=== PATIENT | female | born 1960 | race Caucasian/White ===

== ENCOUNTER 2018-12-02 10:38 | Emergency (ER) | payer MEDICAID, OTHER ==
[~2018-12-02] VITALS: Ht 160 cm; Wt 72.6 kg
[~2018-12-02 10:38] MED LIST: ACHD5005 PO; ALPR.5T PO; CITA40TA19 PO; TRAM50TA2 PO
--- OUTSIDE RECORDS SUMMARY | 2018-12-02 10:45 | XMS REPORT ---
Author APRIL Gatica [facility] eClinicalWorks Address Unknown Phone Unavailable Care Team Providers Care Taxicab Driver Name Role Phone APRIL ESPINOZA CP Unavailable Allergies, Adverse Reactions, Alerts Substance Reaction Event Type N.K.D.A. 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 Active Problem Other and unspecified hyperlipidemia 272.4 Active Problem Unspecified arthropathy, site unspecified 716.90 Active Problem Unspecified vitamin D deficiency 268.9 Active Problem Pain in joint, lower leg 719.46 Active Problem Generalized hyperhidrosis 780.8 Active Problem Shortness of breath 786.05 Active Problem Abnormal weight gain 783.1 Active Problem Anxiety state, unspecified 300.00 Active Problem 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 Assessment Knee pain, bilateral 719.46 Active Problem Unspecified constipation 564.00 Active Problem Unspecified episodic mood disorder 296.90 Active Problem Major depressive disorder, recurrent episode, moderate 296.32 Active Problem Memory loss 780.93 Active Problem Pain in joint, site unspecified 719.40 Active Problem Chronic airway obstruction, not elsewhere classified 496 Active Medications Medication Code System Code Instructions Start Date End Date Status Dosage Celexa [facility] [address]-55 40 mg Oct 01, 2011 SIG: Albuterol Sulfate [facility] [address]-67 90 mcg/actuation Aug 05, 2014 2 puffs by Inhalation route every 4-6 hours as needed PRN cough or wheezing Diclofenac Sodium [facility] 21372535391 75MG TAKE ONE TABLET BY MOUTH TWICE DAILY NEEDED. tramadol ND 0 50 mg December 04, 2014 take 1 tablet (50 mg) by oral route every 6 hours as needed PRN pain Vitamin D [facility] [address]-19 2000 UNIT Orally not defined Alprazolam [facility] [address]-59 0.5 mg Oct 01, 2011 SIG: Other instruction 5 times a day Procedures Procedure Coding System Code Date Office Visit, Est Pt., Level 3 CPT-4 10356 May 21, 2015 Vital Signs Date/Time: May 21, 2015 Temperature 96.8 F Weight 161 lbs Height 63 in BMI 28.52 Index Blood Pressure Diastolic 90 mmHg Blood Pressure Systolic 160 mmHg Cardiac Monitoring Heart Rate 84 bpm Results No Known Results Summary Purpose eClinicalWorks Submission
--- OUTSIDE RECORDS SUMMARY | 2018-12-02 10:45 | XMS REPORT ---
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 Active Problem Generalized hyperhidrosis 780.8 Active Problem Pain in joint, shoulder region 719.41 Active Problem Unspecified vitamin D deficiency 268.9 Active Problem Other and unspecified hyperlipidemia 272.4 Active Problem Hyperlipidemia, mixed E78.2 Active Problem Abnormal weight gain 783.1 Active Problem Pain in joint, lower leg 719.46 Active Problem Unspecified arthropathy, site unspecified 716.90 Active Problem Shortness of breath 786.05 Active Problem 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 Problem Major depressive disorder, recurrent episode, moderate 296.32 Active Problem Anxiety state, unspecified 300.00 Active Problem Unspecified episodic mood disorder 296.90 Active Problem Memory loss 780.93 Active Problem Pain in joint, site unspecified 719.40 Active Problem Chronic airway obstruction, not elsewhere classified 496 Active Problem Unspecified constipation 564.00 Active Problem Other and unspecified derangement of medial meniscus 717.3 Active Medications Medication Code System Code Instructions Start Date End Date Status Dosage tramadol NDC 0 50 mg by oral route December 04, 2014 Aug 23, 2016 take 1 tablet (50 mg) by oral route every 6 hours as needed PRN pain Results No Known Results Summary Purpose eClinicalWorks Submission
--- OUTSIDE RECORDS SUMMARY | 2018-12-02 10:45 | XMS REPORT ---
Author Author APRIL ESPINOZA Organization [facility] Address [address] [place] [address] Care Team Providers Care Dry Cleaner Hand Name Role Phone APRIL ESPINZOA Unavailable PROBLEMS Type Condition ICD9-CM Code [id number] Code Onset Dates Condition Status SNOMED Code Problem Unspecified constipation 564.00 Active 52087443 Problem Anxiety state, unspecified 300.00 Active 504463413 Problem Chronic airway obstruction, not elsewhere classified 496 Active 35747510 Problem Hyperlipidemia, mixed E78.2 Active 048288946 Problem Major depressive disorder, recurrent episode, moderate 296.32 Active 07292083 Problem 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 90361201 Problem Unspecified episodic mood disorder 296.90 Active 332200483 Problem Unspecified vitamin D deficiency 268.9 Active 94254406 Problem Other and unspecified hyperlipidemia 272.4 Active 02394576 Problem Memory loss 780.93 Active 26707919 Problem Generalized hyperhidrosis 780.8 Active 729569001 Problem Shortness of breath 786.05 Active 595914117 Problem Abnormal weight gain 783.1 Active 039282445 Problem Pain in joint, shoulder region 719.41 Active 354221047 Problem Pain in joint, site unspecified 719.40 Active 08474381 Problem 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 Active 14699573 Problem Other and unspecified derangement of medial meniscus 717.3 Active 677086056 Problem Pain in joint, lower leg 719.46 Active 362589241 Problem Unspecified arthropathy, site unspecified 716.90 Active 907037290 ALLERGIES No Information SOCIAL HISTORY Never Assessed PLAN OF CARE VITAL SIGNS MEDICATIONS Medication Instructions Dosage Frequency Start Date End Date Duration Status Diclofenac Sodium 75MG 1 tablet 30 Active RESULTS No Results PROCEDURES No Known procedures IMMUNIZATIONS No Known Immunizations MEDICAL (GENERAL) HISTORY Type Description Date Medical History arthritis Medical History chronic knee pain Surgical History knee surgery(torn meniscus) Hospitalization History surgery Hospitalization History childbirth
--- OUTSIDE RECORDS SUMMARY | 2018-12-02 10:45 | XMS REPORT ---
Author Author APRIL ESPINOZA Organization [facility] Address [address] [place] [address] Care Team Providers Care Finance Specialist Name Role Phone APRIL ESPINOZA Unavailable PROBLEMS Type Condition ICD9-CM Code [id number] Code Onset Dates Condition Status SNOMED Code Problem Unspecified constipation 564.00 Active 90175610 Problem Anxiety state, unspecified 300.00 Active 129992240 Problem Chronic airway obstruction, not elsewhere classified 496 Active 45415657 Problem Hyperlipidemia, mixed E78.2 Active 897116583 Problem Major depressive disorder, recurrent episode, moderate 296.32 Active 52576659 Problem 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 23331389 Problem Unspecified episodic mood disorder 296.90 Active 165659751 Problem Unspecified vitamin D deficiency 268.9 Active 81786737 Problem Other and unspecified hyperlipidemia 272.4 Active 40113731 Problem Memory loss 780.93 Active 66676099 Problem Generalized hyperhidrosis 780.8 Active 226609135 Problem Shortness of breath 786.05 Active 692260059 Problem Abnormal weight gain 783.1 Active 285835540 Problem Pain in joint, shoulder region 719.41 Active 962519748 Problem Pain in joint, site unspecified 719.40 Active 27460280 Problem 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 Active 17675410 Problem Other and unspecified derangement of medial meniscus 717.3 Active 879651166 Problem Pain in joint, lower leg 719.46 Active 430335782 Problem Unspecified arthropathy, site unspecified 716.90 Active 517104575 ALLERGIES No Information SOCIAL HISTORY Never Assessed PLAN OF CARE VITAL SIGNS MEDICATIONS Medication Instructions Dosage Frequency Start Date End Date Duration Status Lovastatin 20 mg Orally Once a day 1 tablet with a meal 24h Dec, 30 day(s) Active RESULTS No Results PROCEDURES No Known procedures IMMUNIZATIONS No Known Immunizations MEDICAL (GENERAL) HISTORY Type Description Date Medical History arthritis Medical History chronic knee pain Surgical History knee surgery(torn meniscus) Hospitalization History surgery Hospitalization History childbirth
--- OUTSIDE RECORDS SUMMARY | 2018-12-02 10:45 | XMS REPORT ---
Author Author APRIL ESPINOZA [facility] eClinicalWorks Address Unknown Phone Unavailable Care Team Providers Care Hair Spring Cutter Name Role Phone APRIL ESPINOZA CP Unavailable Allergies No Known Allergies Problems Problem Type Condition Code Onset Dates Condition Status Problem Other [...] to 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 Problem Unspecified constipation 564.00 Active Problem Unspecified episodic mood disorder 296.90 Active Problem Major depressive disorder, recurrent episode, moderate 296.32 Active Problem Memory loss 780.93 Active Problem Pain in joint, site unspecified 719.40 Active Problem Chronic airway obstruction, not elsewhere classified 496 Active Medications Medication Code System Code Instructions Start Date End Date Status Dosage Diclofenac Sodium [facility] 68180161277 75MG TAKE ONE TABLET BY MOUTH TWICE DAILY NEEDED. Results No Known Results Summary Purpose eClinicalWorks Submission
--- OUTSIDE RECORDS SUMMARY | 2018-12-02 10:45 | XMS REPORT ---
Author Author APRIL ESPINOZA [facility] eClinicalWorks Address Unknown Phone Unavailable Care Team Providers Care Cleat Layer Name Role Phone APRIL ESPINOZA CP Unavailable [...] Status Dosage tramadol NDC 0 50 mg December 04, 2014 take 1 tablet (50 mg) by oral route every 6 hours as needed PRN pain Results No Known Results Summary Purpose eClinicalWorks Submission
--- OUTSIDE RECORDS SUMMARY | 2018-12-02 10:45 | XMS REPORT ---
Author Author APRIL ESPINOZA Organization eClinicalWorks Address Unknown Phone Unavailable Care Team Providers Care Control System Computer Scientist Name Role Phone APRIL ESPINOZA CP Unavailable [...] obstruction, not elsewhere classified 496 Active Medications No Known Medications Results No Known Results Summary Purpose eClinicalWorks Submission
--- OUTSIDE RECORDS SUMMARY | 2018-12-02 10:45 | XMS REPORT ---
Author Author APRIL ESPINOZA [facility] eClinicalWorks Address Unknown Phone Unavailable Care Team Providers Care Marine Services Technician Name Role Phone APRIL ESPINOZA CP Unavailable [...]
--- OUTSIDE RECORDS SUMMARY | 2018-12-02 10:45 | XMS REPORT ---
Author Author APRIL ESPINOZA Organization [facility] Address [address] [place] [address] Care Team Providers Care Comber Fixer Name Role Phone APRIL ESPINOZA Unavailable PROBLEMS Type Condition ICD9-CM Code IKW40-SS Code Onset Dates Condition Status SNOMED Code Problem Pain in joint, shoulder region 719.41 Active 373316936 Problem Pain in joint, lower leg 719.46 Active 268825421 Problem Generalized hyperhidrosis 780.8 Active 511440069 Problem Hyperlipidemia, mixed E78.2 Active 065325863 Assessment Hyperlipidemia, mixed E78.2 May, Active 015263606 Problem Unspecified vitamin D deficiency 268.9 Active 99255469 Assessment Arthritis M19.90 May, Active 5595375 Problem Shortness of breath 786.05 Active 843314625 Problem Abnormal weight gain 783.1 Active 407446171 Problem Other and unspecified hyperlipidemia 272.4 Active 13327268 Problem Unspecified arthropathy, site unspecified 716.90 Active 294026472 Problem Major depressive disorder, recurrent episode, moderate 296.32 Active 65322199 Problem Pain in joint, site unspecified 719.40 Active 65008756 Problem Anxiety state, unspecified 300.00 Active 398001011 Problem 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 Unknown Non Drug Allergy May, Unknown SOCIAL HISTORY No smoking Hx information available PLAN OF CARE VITAL SIGNS Height 63 in 2016-06-03 Weight 162.9 lbs 2016-06-03 Heart Rate 68 bpm 2016-06-03 Respiratory Rate 20 2016-06-03 BMI 28.85 kg/m2 2016-06-03 Blood pressure systolic 135 mmHg 2016-06-03 Blood pressure diastolic 77 mmHg 2016-06-03 MEDICATIONS Medication Instructions Dosage Frequency Start Date End Date Duration Status Diclofenac Sodium 75MG 1 tablet 12h 30 Active Celexa 40 mg SISep, Active tramadol 50 mg take 1 tablet (50 mg) by oral route every 6 hours as needed PRN pain Nov, Active Albuterol Sulfate 90 mcg/actuation 2 puffs 6h 10 Jul, 2014 Active Lovastatin 20 mg Orally Once a day 1 tablet with a meal 24h Dec, 30 day(s) Active Alprazolam 0.5 mg SIG: Other instruction 5 times a day Sep, Active Triamcinolone Acetonide 0.1 % Externally Twice a day 1 application to affected area 12h Oct, Active Vitamin D 2000 UNIT Active RESULTS No Results PROCEDURES Procedure Date Ordered Related Diagnosis Body Site Office Visit, Est Pt., Level 3 Jun 03, 2016 IMMUNIZATIONS No Known Immunizations
--- OUTSIDE RECORDS SUMMARY | 2018-12-02 10:45 | XMS REPORT ---
Author Author APRIL ESPINOZA [facility] eClinicalWorks Address Unknown Phone Unavailable Care Team Providers Care Electric Motor Controls Assembler Name Role Phone APRIL ESPINOZA CP Unavailable [...]
--- OUTSIDE RECORDS SUMMARY | 2018-12-02 10:46 | XMS REPORT ---
Author Author APRIL ESPINOZA Organization [facility] Address [address] [place] [address] Care Team Providers Care Stitch Bonder Machine Operator Helper Name Role Phone APRIL ESPINOZA Unavailable PROBLEMS Type Condition ICD9-CM Code [id number] Code Onset Dates Condition Status SNOMED Code Problem Pain in joint, shoulder region 719.41 Active 390333059 Problem Pain in joint, lower leg 719.46 Active 494628316 Problem Generalized hyperhidrosis 780.8 Active 949800796 Problem Hyperlipidemia, mixed E78.2 Active 376116651 Problem Unspecified vitamin D deficiency 268.9 Active 54126969 Problem Shortness of breath 786.05 Active 005129579 Problem Abnormal weight gain 783.1 Active 691534202 Problem Other and unspecified hyperlipidemia 272.4 Active 09818904 Problem Unspecified arthropathy, site unspecified 716.90 Active 046431065 Problem Major depressive disorder, recurrent episode, moderate 296.32 Active 21834882 Problem Pain in joint, site unspecified 719.40 Active 36559209 Problem Anxiety state, unspecified 300.00 Active 048885279 Problem 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 16946805 Problem Memory loss 780.93 Active 68475546 Problem Chronic airway obstruction, not elsewhere classified 496 Active 15818976 Problem Unspecified constipation 564.00 Active 99112960 Problem Other and unspecified derangement of medial meniscus 717.3 Active 187927663 Problem Unspecified episodic mood disorder 296.90 Active 449825150 Problem 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
--- OUTSIDE RECORDS SUMMARY | 2018-12-02 10:46 | XMS REPORT ---
Author Author APRIL ESPINOZA Organization [facility] Address [address] [place] [address] Care Team Providers Care Mechatronics Engineer Name Role Phone APRIL ESPINOZA Unavailable PROBLEMS Type Condition ICD9-CM Code JLT53-KD Code Onset Dates Condition Status SNOMED Code Problem Pain in joint, shoulder region 719.41 Active 294780464 Problem Pain in joint, lower leg 719.46 Active 209845197 Problem Generalized hyperhidrosis 780.8 Active 567799669 Problem Hyperlipidemia, mixed E78.2 Active 025438035 Problem Unspecified vitamin D deficiency 268.9 Active 19111041 Problem Shortness of breath 786.05 Active 617672317 Problem Abnormal weight gain 783.1 Active 369754084 Problem Other and unspecified hyperlipidemia 272.4 Active 71186206 Problem Unspecified arthropathy, site unspecified 716.90 Active 607139129 Problem Major depressive disorder, recurrent episode, moderate 296.32 Active 80950263 Problem Pain in joint, site unspecified 719.40 Active 39145336 Problem Anxiety state, unspecified 300.00 Active 539643957 Problem 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 70812543 Problem Memory loss 780.93 Active 05977893 Problem Chronic airway obstruction, not elsewhere classified 496 Active 05197852 Problem Unspecified constipation 564.00 Active 43134937 Problem Other and unspecified derangement of medial meniscus 717.3 Active 633155068 Problem Unspecified episodic mood disorder 296.90 Active 797953581 Problem 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
--- OUTSIDE RECORDS SUMMARY | 2018-12-02 10:46 | XMS REPORT ---
Author Author APRIL ESPINOZA Organization [facility] Address [address] [place] [address] Care Team Providers Care Bank Sales And Service Manager Name Role Phone APRIL ESPINOZA Unavailable PROBLEMS Type Condition ICD9-CM Code FYD93-KF Code Onset Dates Condition Status SNOMED Code Problem Unspecified constipation 564.00 Active 58703785 Problem Anxiety state, unspecified 300.00 Active 571345716 Problem Chronic airway obstruction, not elsewhere classified 496 Active 28838971 Problem Hyperlipidemia, mixed E78.2 Active 448374950 Problem Major depressive disorder, recurrent episode, moderate 296.32 Active 82260610 Problem 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 95764937 Problem Unspecified episodic mood disorder 296.90 Active 065403195 Problem Unspecified vitamin D deficiency 268.9 Active 56378891 Problem Other and unspecified hyperlipidemia 272.4 Active 49584370 Problem Memory loss 780.93 Active 92975797 Problem Generalized hyperhidrosis 780.8 Active 304675160 Problem Shortness of breath 786.05 Active 622974651 Problem Abnormal weight gain 783.1 Active 400105993 Problem Pain in joint, shoulder region 719.41 Active 587720744 Problem Pain in joint, site unspecified 719.40 Active 92224541 Problem 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
--- OUTSIDE RECORDS SUMMARY | 2018-12-02 10:46 | XMS REPORT ---
Author Author APRIL ESPINOZA Organization eClinicalWorks Address Unknown Phone Unavailable Care Team Providers Care Attendant Lodging Facilities Name Role Phone APRIL ESPINOZA CP Unavailable Allergies No Known Allergies Problems Problem Type Condition ICD-9 Code Onset [...]
--- OUTSIDE RECORDS SUMMARY | 2018-12-02 10:46 | XMS REPORT ---
Author Author APRIL ESPINOZA Organization eClinicalWorks Address Unknown Phone Unavailable Care Team Providers Care Freight Car Repairer Name Role Phone APRIL ESPINOZA CP Unavailable [...]
--- OUTSIDE RECORDS SUMMARY | 2018-12-02 10:46 | XMS REPORT ---
Author APRIL Gatica Organization eClinicalWorks Address Unknown Phone Unavailable Care Team Providers Care Stationary Steam Engineer Name Role Phone APRIL ESPINOZA CP Unavailable [...] Instructions Start Date End Date Status Dosage Lovastatin [facility] [address]-91 20 mg Orally Once a day December 29, 2015 1 tablet with a meal Results No Known Results Summary Purpose eClinicalWorks Submission
--- OUTSIDE RECORDS SUMMARY | 2018-12-02 10:46 | XMS REPORT ---
Author Author APRIL ESPINOZA Organization eClinicalWorks Address Unknown Phone Unavailable Care Team Providers Care President And Chief Commercial Officer Name Role Phone APRIL ESPINOZA CP Unavailable [...]
--- OUTSIDE RECORDS SUMMARY | 2018-12-02 10:46 | XMS REPORT ---
Author Author APRIL ESPINOZA [facility] Address [address] [place] [address] Care Team Providers Care Web Systems Developer Name Role Phone APRIL ESPINOZA Unavailable PROBLEMS Type Condition ICD9-CM Code YRT87-HF Code Onset Dates Condition Status SNOMED Code Problem Pain in joint, shoulder region 719.41 Active 986406694 Problem Pain in joint, lower leg 719.46 Active 471277730 Problem Generalized hyperhidrosis 780.8 Active 151177892 Problem Hyperlipidemia, mixed E78.2 Active 104594376 Assessment Pain in right knee M25.561 May, Active 06266928 Problem Unspecified vitamin D deficiency 268.9 Active 22993083 Assessment Pain in left knee M25.562 May, Active 53714842 Assessment Other chronic pain G89.29 May, Active 35437891 Problem Shortness of breath 786.05 Active 118464797 Problem Abnormal weight gain 783.1 Active 073760646 Problem Other and unspecified hyperlipidemia 272.4 Active 21611544 Problem Unspecified arthropathy, site unspecified 716.90 Active 344015880 Problem Major depressive disorder, recurrent episode, moderate 296.32 Active 30257320 Problem Pain in joint, site unspecified 719.40 Active 02026202 Problem Anxiety state, unspecified 300.00 Active 787045336 Problem 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 Unknown Non Drug Allergy May, Unknown SOCIAL HISTORY No smoking Hx information available PLAN OF CARE VITAL SIGNS Height 63 in 2016 Weight 161 lbs 2016 Heart Rate 68 bpm 2016 Respiratory Rate 20 2016 BMI 28.52 kg/m2 2016 Blood pressure systolic 100 mmHg 2016 Blood pressure diastolic 68 mmHg 2016 MEDICATIONS Medication Instructions Dosage Frequency Start Date End Date Duration Status Lovastatin 20 mg Orally Once a day 1 tablet with a meal 24h Dec, 30 day(s) Active tramadol 50 mg take 1 tablet (50 mg) by oral route every 6 hours as needed PRN pain Nov, Active Vitamin D 2000 UNIT Active Diclofenac Sodium 75MG 1 tablet 12h 30 Active Alprazolam 0.5 mg SIG: Other instruction 5 times a day 8h Sep, Active Celexa 40 mg Orally Once a day 1 tablet 24h Sep, Active Albuterol Sulfate 90 mcg/actuation 2 puffs 6h Jul, Active RESULTS No Results PROCEDURES Procedure Date Ordered Related Diagnosis Body Site JOINT INJECTION-LARGE JOINT 2016 N/A DRAIN/INJECT, JOINT/BURSA 2016 Office Visit, Est Pt., Level 2 2016 IMMUNIZATIONS No Known Immunizations
--- OUTSIDE RECORDS SUMMARY | 2018-12-02 10:46 | XMS REPORT ---
Author Author APRIL ESPINOZA Organization [employer] Address Unknown Phone Unavailable Care Team Providers Care Stenographic Court Reporter Name Role Phone APRIL ESPINOZA CP Unavailable [...] Status Dosage tramadol NDC 0 50 mg PT NEEDS APPT FOR FURTHER REFILLS December 04, 2014 take 1 tablet (50 mg) by oral route every 6 hours as needed PRN pain Results No Known Results Summary Purpose [employer] Submission
--- OUTSIDE RECORDS SUMMARY | 2018-12-02 10:46 | XMS REPORT ---
Author Author APRIL ESPINOZA Organization [employer] Address Unknown Phone Unavailable Care Team Providers Care Toy Maker Name Role Phone APRIL ESPINOZA CP Unavailable [...] Dosage tramadol NDC 0 50 mg PT MUST ATTEND FEB APPT FOR FURTHER REFILLS November take 1 tablet (50 mg) by oral route every 6 hours as needed PRN pain Results No Known Results Summary Purpose [employer] Submission
--- OUTSIDE RECORDS SUMMARY | 2018-12-02 10:46 | XMS REPORT ---
Author Author APRIL ESPINOZA [facility] [employer] Address Unknown Phone Unavailable Care Team Providers Care Live Source Operator Name Role Phone APRIL ESPINOZA CP Unavailable [...]
--- OUTSIDE RECORDS SUMMARY | 2018-12-02 10:47 | XMS REPORT | Continuity of Care Document ---
Author Author [facility] Address Unknown Phone Unavailable Allergies There is no data. Medications There is no data. Problems Date Dx Coded Attending Type Code Diagnosis Diagnosed By 08/28/2008 APRIL ESPINOZA APRN 346.90 MIGRAINE UNSPECIFIED WITHOUT INTRACTABLE MIGRAINE 08/28/2008 APRIL ESPINOZA APRN 706.2 SEBACEOUS CYST 08/28/2008 APRIL ESPINOZA APRN 346.90 MIGRAINE UNSPECIFIED WITHOUT INTRACTABLE MIGRAINE 08/28/2008 APRIL ESPINOZA APRN 706.2 SEBACEOUS CYST 08/28/2008 APRIL ESPINOZA APRN 346.90 MIGRAINE UNSPECIFIED WITHOUT INTRACTABLE MIGRAINE 08/28/2008 APRIL ESPINOZA APRN 706.2 SEBACEOUS CYST 08/28/2008 APRIL ESPINOZA APRN 346.90 MIGRAINE UNSPECIFIED WITHOUT INTRACTABLE MIGRAINE 08/28/2008 APRIL ESPINOZA APRN 706.2 SEBACEOUS CYST 08/28/2008 346.90 MIGRAINE UNSPECIFIED WITHOUT INTRACTABLE MIGRAINE 08/28/2008 706.2 SEBACEOUS CYST 08/28/2008 APRIL ESPINOZA APRN T 346.90 MIGRAINE UNSPECIFIED WITHOUT INTRACTABLE MIGRAINE 08/28/2008 APRIL ESPINOZA APRN 706.2 SEBACEOUS CYST 08/28/2008 GEOVANNA EDEN DO K 346.90 MIGRAINE UNSPECIFIED WITHOUT INTRACTABLE MIGRAINE 08/28/2008 GEOVANNA EDEN DO K 706.2 SEBACEOUS CYST 08/28/2008 APRIL ESPINOZA APRN T 346.90 MIGRAINE UNSPECIFIED WITHOUT INTRACTABLE MIGRAINE 08/28/2008 APRIL ESPINOZA APRN 706.2 SEBACEOUS CYST 08/28/2008 CHERELLE GONZALEZ PHD 346.90 MIGRAINE UNSPECIFIED WITHOUT INTRACTABLE MIGRAINE 08/28/2008 CHERELLE GONZALEZ PHD 706.2 SEBACEOUS CYST 08/28/2008 APRIL ESPINOZA APRN T 346.90 MIGRAINE UNSPECIFIED WITHOUT INTRACTABLE MIGRAINE 08/28/2008 APRIL ESPINOZA APRN 706.2 SEBACEOUS CYST 08/28/2008 GEOVANNA EDEN DO K 346.90 MIGRAINE UNSPECIFIED WITHOUT INTRACTABLE MIGRAINE 08/28/2008 GEOVANNA EDEN DO Celeste 706.2 SEBACEOUS CYST 10/01/2011 APRIL ESPINOZA APRN 719.41 PAIN IN JOINT INVOLVING SHOULDER REGION 10/01/2011 APRIL ESPINOZA APRN 719.46 PAIN IN JOINT INVOLVING LOWER LEG 10/01/2011 APRIL ESPINOZA APRN 780.8 HOT FLASHES 10/01/2011 APRIL ESPINOZA APRN 783.1 WEIGHT GAIN ABNORMAL 10/01/2011 APRIL ESPINOZA APRN 786.05 SHORTNESS OF BREATH 10/01/2011 APRIL ESPINOZA APRN 719.41 PAIN IN JOINT INVOLVING SHOULDER REGION 10/01/2011 APRIL ESPINOZA APRN 719.46 PAIN IN JOINT INVOLVING LOWER LEG 10/01/2011 APRIL ESPINOZA APRN 780.8 HOT FLASHES 10/01/2011 APRIL ESPINOZA APRN 783.1 WEIGHT GAIN ABNORMAL 10/01/2011 APRIL ESPINOZA APRN 786.05 SHORTNESS OF BREATH 10/01/2011 APRIL ESPINOZA APRN 719.41 PAIN IN JOINT INVOLVING SHOULDER REGION 10/01/2011 APRIL ESPINOZA APRN 719.46 PAIN IN JOINT INVOLVING LOWER LEG 10/01/2011 APRIL ESPINOZA APRN 780.8 HOT FLASHES 10/01/2011 APRIL ESPINOZA APRN 783.1 WEIGHT GAIN ABNORMAL 10/01/2011 APRIL ESPINOZA APRN 786.05 SHORTNESS OF BREATH 10/01/2011 APRIL ESPINOZA APRN 719.41 Pain In Joint Involving Shoulder Region 10/01/2011 APRIL ESPINOZA APRN 719.46 Pain In Joint Involving Lower Leg 10/01/2011 APRIL ESPINOZA APRN 780.8 HOT FLASHES 10/01/2011 APRIL ESPINOZA APRN 783.1 WEIGHT GAIN ABNORMAL 10/01/2011 APRIL ESPINOZA APRN 786.05 Shortness Of Breath 10/01/2011 719.41 Pain In Joint Involving Shoulder Region 10/01/2011 719.46 Pain In Joint Involving Lower Leg 10/01/2011 780.8 HOT FLASHES 10/01/2011 783.1 WEIGHT GAIN ABNORMAL 10/01/2011 786.05 Shortness Of Breath 10/01/2011 APRIL ESPINOZA APRN 719.41 Pain In Joint Involving Shoulder Region 10/01/2011 APRIL ESPINOZA APRN 719.46 Pain In Joint Involving Lower Leg 10/01/2011 APRIL ESPINOZA APRN 780.8 HOT FLASHES 10/01/2011 APRIL ESPINOZA APRN 783.1 WEIGHT GAIN ABNORMAL 10/01/2011 APRIL ESPINOZA APRN 786.05 Shortness Of Breath 10/01/2011 EDEN DO, GEOVANNA K 719.41 Pain In Joint Involving Shoulder Region 10/01/2011 EDEN DO, GEOVANNA K 719.46 Pain In Joint Involving Lower Leg 10/01/2011 EDEN DO, GEOVANNA K 780.8 HOT FLASHES 10/01/2011 EDEN DO, GEOVANNA K 783.1 WEIGHT GAIN ABNORMAL 10/01/2011 EDEN DO, GEOVANNA K 786.05 Shortness Of Breath 10/01/2011 APRIL ESPINOZA APRN 719.41 Pain In Joint Involving Shoulder Region 10/01/2011 APRIL ESPINOZA APRN 719.46 Pain In Joint Involving Lower Leg 10/01/2011 APRIL ESPINOZA APRN 780.8 HOT FLASHES 10/01/2011 APRIL ESPINOZA APRN 783.1 WEIGHT GAIN ABNORMAL 10/01/2011 APRIL ESPINOZA APRN 786.05 Shortness Of Breath 10/01/2011 CHERELLE GONZALEZ PHD 719.41 Pain In Joint Involving Shoulder Region 10/01/2011 CHERELLE GONZALEZ PHD 719.46 Pain In Joint Involving Lower Leg 10/01/2011 CHERELLE GONZALEZ PHD 780.8 HOT FLASHES 10/01/2011 LISA SIFUENTES, CHERELLE Donahue 783.1 WEIGHT GAIN ABNORMAL 10/01/2011 CHERELLE GONZALEZ PHD 786.05 Shortness Of Breath 10/01/2011 APRIL ESPINOZA APRN 719.41 Pain In Joint Involving Shoulder Region 10/01/2011 APRIL ESPINOZA APRN 719.46 Pain In Joint Involving Lower Leg 10/01/2011 APRIL ESPINOZA APRN 780.8 HOT FLASHES 10/01/2011 APRIL ESPINOZA APRN 783.1 WEIGHT GAIN ABNORMAL 10/01/2011 APRIL ESPINOZA APRN 786.05 Shortness Of Breath 10/01/2011 EDEN DO, GEOVANNA K 719.41 Pain In Joint Involving Shoulder Region 10/01/2011 EDEN DO, GEOVANNA K 719.46 Pain In Joint Involving Lower Leg 10/01/2011 EDEN DO, GEOVANNA K 780.8 HOT FLASHES 10/01/2011 GEOVANNA EDEN DO 783.1 WEIGHT GAIN ABNORMAL 10/01/2011 GEOVANNA EDEN DO 786.05 Shortness Of Breath 11/04/2011 APRIL ESPINOZA APRN 717.3 OTHER AND UNSPECIFIED DERANGEMENT OF MEDIAL MENISCUS 11/04/2011 APRIL ESPINOZA APRN 717.3 OTHER AND UNSPECIFIED DERANGEMENT OF MEDIAL MENISCUS 11/04/2011 APRIL ESPINOZA APRN 717.3 OTHER AND UNSPECIFIED DERANGEMENT OF MEDIAL MENISCUS 11/04/2011 APRIL ESPINOZA APRN 717.3 Other And Unspecified Derangement Of Medial Meniscus 11/04/2011 717.3 Other And Unspecified Derangement Of Medial Meniscus 11/04/2011 APRIL ESPINOZA APRN 717.3 Other And Unspecified Derangement Of Medial Meniscus 11/04/2011 GEOVANNA EDEN DO 717.3 Other And Unspecified Derangement Of Medial Meniscus 11/04/2011 APRIL ESPINOZA APRN 717.3 Other And Unspecified Derangement Of Medial Meniscus 11/04/2011 LISA SIFUENTES, CHERELLE Acosta7.3 Other And Unspecified Derangement Of Medial Meniscus 11/04/2011 APRIL ESPINOZA APRN 717.3 Other And Unspecified Derangement Of Medial Meniscus 11/04/2011 GEOVANNA EDEN DO 717.3 Other And Unspecified Derangement Of Medial Meniscus 08/18/2012 APRIL ESPINOZA APRN 719.40 ARTHRAIGIA UNSPEC 08/18/2012 APRIL ESPINOZA APRN 719.40 ARTHRAIGIA UNSPEC 08/18/2012 APRIL ESPINOZA APRN 719.40 ARTHRAIGIA UNSPEC 08/18/2012 APRIL ESPINOZA APRN 719.40 Arthraigia Unspec 08/18/2012 719.40 Arthraigia Unspec 08/18/2012 APRIL ESPINOZA APRN 719.40 Arthraigia Unspec 08/18/2012 GEOVANNA EDEN DO 719.40 Arthraigia Unspec 08/18/2012 APRIL ESPINOZA APRN 719.40 Arthraigia Unspec 08/18/2012 LISA SIFUENTES, CHERELLE Donahue 719.40 Arthraigia Unspec 08/18/2012 APRIL ESPINOZA APRN 719.40 Arthraigia Unspec 08/18/2012 GEOVANNA EDEN DO 719.40 Arthraigia Unspec 09/27/2012 OLGA MCCLELLANDN, APRIL T 268.9 VITAMIN D DEFICIENCY 09/27/2012 OLGA MILL LABOR SUPERVISOR, APRIL T 272.4 HYPERLIPIDEMIA 09/27/2012 OLGA MILL LABOR SUPERVISOR, APRIL T 268.9 VITAMIN D DEFICIENCY 09/27/2012 OLGA MILL LABOR SUPERVISOR, APRIL T 272.4 HYPERLIPIDEMIA 09/27/2012 OLGA MILL LABOR SUPERVISOR, APRIL T 268.9 VITAMIN D DEFICIENCY 09/27/2012 OLGA MILL LABOR SUPERVISOR, APRIL T 272.4 HYPERLIPIDEMIA 09/27/2012 268.9 VITAMIN D DEFICIENCY 09/27/2012 272.4 HYPERLIPIDEMIA 09/27/2012 OLGA MILL LABOR SUPERVISOR, APRIL T 268.9 VITAMIN D DEFICIENCY 09/27/2012 OLGA MILL LABOR SUPERVISOR, APRIL T 272.4 HYPERLIPIDEMIA 09/27/2012 EDEN DO, GEOVANNA K 268.9 VITAMIN D DEFICIENCY 09/27/2012 EDEN DO, GEOVANNA K 272.4 HYPERLIPIDEMIA 09/27/2012 OLGA MILL LABOR SUPERVISOR, APRIL T 268.9 VITAMIN D DEFICIENCY 09/27/2012 OLGA MCCLELLANDN, APRIL T 272.4 HYPERLIPIDEMIA 09/27/2012 LISA SIFUENTES, CHERELLE Donahue 268.9 VITAMIN D DEFICIENCY 09/27/2012 LISA PHD, CHERELLE Donahue 272.4 HYPERLIPIDEMIA 09/27/2012 OLGA MINA, APRIL T 268.9 VITAMIN D DEFICIENCY 09/27/2012 OLGA MCCLELLANDN, APRIL T 272.4 HYPERLIPIDEMIA 09/27/2012 EDEN DO, GEOVANNA K 268.9 VITAMIN D DEFICIENCY 09/27/2012 EDEN DO, GEOVANNA K 272.4 HYPERLIPIDEMIA 10/18/2012 APRIL ESPINOZA APRN T 564.00 CONSTIPATION 10/18/2012 ARPIL ESPINOZA APRN T 564.00 Constipation 10/18/2012 564.00 Constipation 10/18/2012 APRIL ESPINOZA APRN T 564.00 Constipation 10/18/2012 EDEN DO, GEOVANNA K 564.00 Constipation 10/18/2012 OLGA MINA, APRIL T 564.00 Constipation 10/18/2012 LISA PHD, CHERELLE Donahue 564.00 Constipation 10/18/2012 APRIL ESPINOZA APRN T 564.00 Constipation 10/18/2012 EDEN DO, GEOVANNA K 564.00 Constipation 01/26/2013 716.90 ARTHRITIS/ ARTHROPATHY, UNSPECIFIED 01/26/2013 APRIL ESPINOZA APRN T 716.90 ARTHRITIS/ ARTHROPATHY, UNSPECIFIED 01/26/2013 EDEN DO, GEOVANNA K 716.90 ARTHRITIS/ ARTHROPATHY, UNSPECIFIED 01/26/2013 APRIL ESPINOZA APRN 716.90 ARTHRITIS/ ARTHROPATHY, UNSPECIFIED 01/26/2013 CHERELLE GONZALEZ PHD 716.90 ARTHRITIS/ ARTHROPATHY, UNSPECIFIED 01/26/2013 APRIL ESPINOZA APRN 716.90 ARTHRITIS/ ARTHROPATHY, UNSPECIFIED 01/26/2013 LEONOR EDEN DOA K 716.90 ARTHRITIS/ ARTHROPATHY, UNSPECIFIED 02/14/2013 APRIL ESPINOZA APRN 296.90 MOOD DISORDER 02/14/2013 LEONOR EDEN DOA K 296.90 MOOD DISORDER 02/14/2013 APRIL ESPINOZA APRN 296.90 MOOD DISORDER 02/14/2013 CHERELLE GONZALEZ PHD 296.90 MOOD DISORDER 02/14/2013 APRIL ESPINOZA APRN 296.90 MOOD DISORDER 02/14/2013 GEOVANNA EDEN DO K 296.90 MOOD DISORDER 09/11/2013 GEOVANNA EDEN DO K 496 COPD 09/11/2013 APRIL ESPINOZA APRN 496 COPD 09/11/2013 CHERELLE GONZALEZ PHD 496 COPD 09/11/2013 APRIL ESPINOZA APRN 496 COPD 09/11/2013 GEOVANNA EDEN DO K 496 COPD 03/15/2014 APRIL ESPINOZA APRN 780.93 MEMORY LOSS 03/15/2014 CHERELLE GONZALEZ PHD 780.93 MEMORY LOSS 03/15/2014 APRIL ESPINOZA APRN 780.93 MEMORY LOSS 03/15/2014 GEOVANNA EDEN DO K 780.93 MEMORY LOSS 04/19/2014 CHERELLE GONZALEZ PHD 294.9 OR COG DIS NOS 04/19/2014 CHERELLE GONZALEZ PHD 296.32 MO DEPRESSIVE RECURRENT MODERATE 04/19/2014 CHERELLE GONZALEZ PHD 300.00 AN ANXIETY UNSPEC 04/19/2014 APRIL ESPINOZA APRN 294.9 OR COG DIS NOS 04/19/2014 APRIL ESPINOZA APRN 296.32 MO DEPRESSIVE RECURRENT MODERATE 04/19/2014 APRIL ESPINOZA APRN 300.00 AN ANXIETY UNSPEC 04/19/2014 GEOVANNA EDEN DO K 294.9 OR COG DIS NOS 04/19/2014 LEONOR EDEN DOA K 296.32 MO DEPRESSIVE RECURRENT MODERATE 04/19/2014 LEONOR EDEN DOA K 300.00 AN ANXIETY UNSPEC 07/01/2014 APRIL ESPINOZA APRN 717.3 OTHER AND UNSPECIFIED DERANGEMENT OF MEDIAL MENISCUS 07/01/2014 GEOVANNA EDEN DO 717.3 OTHER AND UNSPECIFIED DERANGEMENT OF MEDIAL MENISCUS 08/01/2014 GEOVANNA EDEN DO 733.92 CHONDROMALACIA Procedures Code Description [place] [address] ROUTINE VENIPUNCTURE 08/21/2012 57816 CMP 08/21/2012 88017 LIPID PANEL 08/21/2012 4111523 GFR CALC (RESULT ONLY) 08/21/2012 84217 CBC 08/21/2012 14145 VITAMIN D 25-HYDROXY (D2,D3 , TOTAL) 08/21/2012 60931 TSH 08/21/2012 25090 URIC ACID 08/21/2012 99912 ESR/SED RATE 08/21/2012 67112 ASO 08/21/2012 86232 CRP 08/21/2012 42658 RA FACTOR 08/21/2012 ANAANA KEVIN ANALYZER (SCREEN) 08/21/2012 91700 ROUTINE VENIPUNCTURE 12/22/2012 96631 VITAMIN D 25-HYDROXY (D2,D3 , TOTAL) 12/22/2012 12872 OXIMETRY 09/11/2013 59507 PSYCH DIAGNOSTIC EVALUATION 04/19/2014 ORTHOPEDMassimo Turpin 07/01/2014 Results There is no data. Encounters ACCT No. Visit Date/Time Discharge Status Pt. Type Provider Facility Loc./Unit Complaint [id number] 08/01/2014 14:54:00 08/01/2014 23:59:59 CLS Outpatient GEOVANNA EDEN DO [id number] 07/01/2014 10:25:00 07/01/2014 23:59:59 CLS Outpatient APRIL ESPINOZA APRN [id number] 04/19/2014 11:54:00 04/19/2014 23:59:59 CLS Outpatient LISA SIFUENTES, CHERELLE Donahue [id number] 03/15/2014 12:17:00 03/15/2014 23:59:59 CLS Outpatient APRIL ESPINOZA APRN [id number] 09/11/2013 13:29:00 09/11/2013 23:59:59 CLS Outpatient GEOVANNA EDEN DO [id number] 02/14/2013 11:17:00 02/14/2013 23:59:59 CLS Outpatient APRIL ESPINOZA APRN [id number] 12/22/2012 11:24:00 12/22/2012 23:59:59 CLS Outpatient APRIL ESPINOZA APRN [id number] 10/18/2012 14:34:00 10/18/2012 23:59:59 CLS Outpatient APRIL ESPINOZA APRN [id number] 09/27/2012 10:07:00 09/27/2012 23:59:59 CLS Outpatient APRIL ESPINOZA APRN [id number] 08/18/2012 10:50:00 08/18/2012 23:59:59 CLS Outpatient APRIL ESPINOZA APRN [id number] 01/26/2013 10:38:00 Document Registration [id number] 11/28/2018 14:00:00 11/28/2018 23:59:59 [facility]
[2018-12-02] MEDS ORDERED: TRAZ-190 (10:56)
[2018-12-02] MEDS ORDERED: DICL75TA2 (10:56)
--- NOTE | 2018-12-02 10:58 | ED EENT ---
History of Present Illness General Stated Complaint: PT CANT HEAR OUT OF LT EAR Source: patient, other Exam Limitations: no limitations History of Present Illness Date Seen by Provider: Dec 02, 2018 Time Seen by Provider: 10:44 Initial Comments Patient presents to ER by private conveyance with her significant other and multiple complaints starting with decreased hearing sensation for 2 months in her left ear now starting in her right ear. She saw her primary care doctor and he prescribed her Flonase which did not help so she's tried Sudafed. He also has treated her with antibiotics for sinus infection but that also did not help. She's having no discharge fevers chills cough nausea vomiting. No history of surgeries on her ears. She's feeling mild pressure in her left ear like it's under water. She also has a complaint of today she woke up with a red swollen left corner of her lips with a fine yellow crust does not itch or burn. She's also been treating a rash in her groin started out on the left and has spread to the right with a cream from her primary care doctor. She thinks it starts with a T maybe triamcinolone or tinactin. Has a malodor without any discharge or induration. Allergies and Home Medications Allergies Coded Allergies: No Known Drug Allergies (Unverified , 12/21/11) Home Medications Alprazolam 0.5 Mg Tablet, 1 TAB PO Q4H, (Reported) Citalopram Hydrobromide 40 Mg Tablet, 1 EACH PO DAILY, (Reported) Hydrocodone Bit/Acetaminophen 1 Each Tablet, 1 EACH PO q 3hr PRN, (Reported) MAY TAKE 1 TABLET BY MOUTH EVERY 3 HRS NEEDED FOR PAIN. DO NOT EXCEED 3000 MG TYLENOL IN A 24 HR PERIOD (ACETAMINOPHEN) Tramadol Hcl 50 Mg Tablet, 50 MG PO NEEDED, (Reported) FOR PAIN Patient Home Medication List Home Medication List Reviewed: Yes Review of Systems Review of Systems Constitutional: No chills, No diaphoresis, No fever Eyes: Denies Blindness, Denies Blurred Vision Ears: See HPI; Denies Dizziness, Denies Pain Nose: denies clots, denies congestion Mouth: denies clots, denies loose teeth; other (upper and lower dentures) Throat: denies pain, denies swelling, denies discharge, denies neck stiffness, denies hoarse Respiratory: No cough, No short of breath Cardiovascular: No chest pain, No edema Past Griwfpl-Fyutrw-[id number] Hx Patient Social History Recent Foreign Travel: No (N) Contact w/Someone Who Travel: No (N) Past Medical History Reproductive Disorders: No Physical Exam Height, Weight, BMI Height: '" Weight: lbs. oz. kg; BMI Method: General Appearance: WD/WN, no apparent distress Eyes: bilateral eye normal inspection, bilateral eye PERRL, bilateral eye EOMI Ears: bilateral ear auricle normal, bilateral ear canal normal, bilateral ear TM normal Nose: normal inspection; No discharge, No sinus tenderness Mouth/Throat: normal mouth inspection, pharynx normal, other (subtle swelling on the left side of her cheek and some erythema with honey crust rash at the corner of her left mouth) Neck: non-tender, full range of motion, supple, normal inspection Cardiovascular: normal peripheral pulses, regular rate, rhythm Neurologic/Psychiatric: alert, normal mood/affect, oriented x 3 Skin: rash (erythematous rash bilateral groins left worse than right with some subtle breakdown and faint odor) Progress/Results/Core Measures Progress Progress Note : Time: 10:57 Progress Note Previous records indicate she was prescribed clotrimazole. We are going to Put her on oral terbinafine and follow-up in 2 weeks with PCP. We will recommend that she continues the Flonase and reduce her quit smoking and follow-up with ear nose and throat for her hearing loss. We'll hold off putting any systemic steroids since she has a rash in her groin that is progressing and appears to be fungal in origin. Bacitracin for her impetigo. Departure Impression Primary Impression: Hearing loss in left ear Qualified Codes: H91.92 - Unspecified hearing loss, left ear Additional Impressions: Impetigo Tinea cruris Disposition: 01 HOME, SELF-CARE Condition: Stable Departure-Patient Inst. Decision time for Depature: 10:59 Referrals: MONSE HORNE MD, PANKAJ K MD (PCP/Family) Primary Care Physician Patient Instructions: Hearing Loss in Adults, Impetigo, Jock Itch (DC) Add. Discharge Instructions: Apply a thin layer of the bacitracin ointment to the side of your cheek twice a day after cleaning with regular soap and water. Do this for at least one week until it resolves. Take terbinafine one capsule daily for the next 2 weeks and then follow up with the primary care doctor for reevaluation of the rash in your groin. Call and request an appointment with the ear nose and throat surgeon Dr. Horne about your hearing loss. Continue to use the Flonase. Scripts Bacitracin (Bacitracin) 3.5 Gm Oint...g. 0.25 GM OP BID for 7 Days, #1 TUBE 0 Refills Prov: KENNETH EASTON 12/02/18 Terbinafine HCl (Terbinafine HCl) 250 Mg Tablet 250 MG PO DAILY for 14 Days, #14 TAB 0 Refills Prov: KENNETH EASTON 12/02/18 KENNETH EASTON Dec 02, 2018 10:58
[2018-12-02] MEDS ORDERED: BACI3.5O6 OP (11:07)
[2018-12-02] MEDS ORDERED: TERB250T16 PO (11:07)
[2018-12-02 11:12] VITALS: BP 165/85
== END 2018-12-02 11:15 | disposition home or self-care (01) ==
LOC: EDUNIT# 10:38 → ER FS 10:41
DX: H91.92 Unspecified hearing loss, left ear (principal); L01.00 Impetigo, unspecified; B35.6 Tinea cruris
CPT/HCPCS: 99281